=== PATIENT | female | born 1950 | race Hispanic/Latino ===

== ENCOUNTER 2020-05-10 15:24 | Emergency (ER) | payer BC ==
[2020-05-10] MEDS ORDERED: Acetaminophen 325 MG TAB ONE (16:37)
[2020-05-10 16:39] LABS: #Basophils 0.1 thou/uL (0.0-0.2); #Lymphocytes 0.6 thou/uL (1.20-3.40); #Monocytes 0.4 thou/uL (0.11-0.59); #Neutrophils 18.8 thou/uL (1.40-6.50); %Basophils 0.3 % (0.0-1.0); %Lymphocytes 2.9 % (21.0-51.0); %Monocytes 2.2 % (0.0-10.0); %Neutrophils 94.5 % (42.0-75.0); Hemoglobin 15.3 g/dL (12.0-16.0); Mean Corpuscular HGB CONC 32.1 g/dL (32.0-36.0); Mean Corpuscular Hemoglobin 28.6 pg (27.0-31.0); Mean Corpuscular Volume 88.9 fL (78.0-98.0); Mean Platelet Volume 8.3 fL (7.4-10.4); Platelet Count 271 thou/uL (130-400); RBC Distribution Width 11.8 % (11.5-14.5); Red Blood Cell (RBC) Count 5.35 mill/uL (4.20-5.40); White Blood Cell (WBC) Count 19.9 thou/uL (4.8-10.8)
[2020-05-10 16:58] LABS: ALT (SGPT) 18 U/L (8-55); AST (SGOT) 15 U/L (5-34); Albumin 4.2 g/dL (3.4-4.8); Alkaline Phosphatase 83 U/L (40-110); Anion Gap 17 mmol/L (10-20); BUN (Urea Nitrogen) 19 mg/dL (9.8-20.1); Bilirubin, Total 1.2 mg/dL (0.2-1.2); Calc. Creatinine Clearance 0 mL/min (70-130); Calcium 9.5 mg/dL (7.8-10.44); Carbon Dioxide 22 mmol/L (23-31); Chloride 95 mmol/L (98-107); Globulin 3.7 g/dL (2.4-3.5); Glucose 119 mg/dL (80-115); Lipase 13 U/L (8-78); Potassium 3.5 mmol/L (3.5-5.1); Protein, Total 7.9 g/dL (6.0-8.3); Sodium 130 mmol/L (136-145)
[2020-05-10 17:03] LABS: Bilirubin Small (Negative); Blood, Urine Small (Negative); Clarity Cloudy (Clear); Glucose, Urine (Dipstick) Negative (Negative); Ketone, Urine 40 mg/dL (Negative); Leukocyte Large (Negative); Nitrite Negative (Negative); Protein, Urine (Dipstick) 30 mg/dL (Neg-Trace)
[2020-05-10 17:16] LABS: RBC/HPF 0-3 HPF (0-3); WBC/HPF 21-50 HPF (0-3)
[2020-05-10 17:17] LABS: Mucous/LPF 1+ LPF (<2+); Renal Epithelial 0-3 HPF (None Seen); Transitional Epithelial 0-3 HPF (None Seen)
[2020-05-10 17:18] LABS: Bacteria/HPF 1+ HPF (None Seen)
--- NOTE | 2020-05-10 17:37 | RAD ---
PORTABLE CHEST: 05/10/20 An AP portable film at 1621 is compared with a 04/04/12 study. The depth of inspiration is shallow which crowds the basilar markings. Some linear basilar infiltrate s over the right hemidiaphragm are probably due to subsegmental atelectasis due to the shallow breath . There is an outside chance that this could be the beginnings of an actual infiltrate, but this is e quivocal at this point. There seems to be some mild gaseous distention of bowel beneath the diaphragm , but there is no sign of free air or truly gross dilation. IMPRESSION: Shallow breath. Presumed right basilar atelectasis. Follow-up may be needed. See above. POS: HOME
[2020-05-10] MEDS ORDERED: Aspirin Chewable 81 MG TAB ONE (18:04)
== END 2020-05-10 22:02 | disposition short-term general hospital (02) ==
LOC: BURERS 15:24
DX: A41.9 Sepsis, unspecified organism (principal); R77.8 Other specified abnormalities of plasma proteins; N39.0 Urinary tract infection, site not specified; I10 Essential (primary) hypertension; E78.5 Hyperlipidemia, unspecified
CPT/HCPCS: 36415; 71045; 80053; 81003; 81015; 82553; 83605; 83690; 84443; 84484; 85025; 87040; 93005; 94760; 96365; 96366; 96367; J1956; J3370